=== PATIENT | female | born 1965 | race Hispanic/Latino ===

== ENCOUNTER → 2021-05-13 | Outpatient (CLI) | payer OTHER | END | disposition home or self-care (01) | LOC: RAH 10:50 | PROVIDERS: ATTEND Internal Medicine Cardiovascular Disease | DX: Z13.6 Encounter for screening for cardiovascular disorders (principal) | CPT/HCPCS: 75571 ==

== ENCOUNTER → 2024-07-16 | Outpatient (CLI) | payer OTHER ==
--- NOTE | 2024-07-16 17:38 | HMCSR ---
APPROVED REPORT Bilateral Lower Extremity Venous Study for DVT., Venous Competence. Indications Lower Extremity Edema: , i87.1, i87.2 Vein Imaging CFV (R): Normal flow, augmentation and compression. No evidence of DVT. 10.0mm 1089ms of reflux. SFJ (R): Normal flow, augmentation and compression. No evidence of DVT. FEM (R): Normal flow, augmentation and compression. No evidence of DVT. POP (R): Normal flow, augmentation and compression. No evidence of DVT. DFV (R): Normal flow, augmentation and compression. No evidence of DVT. PTV (R): Normal flow, augmentation and compression. No evidence of DVT. Peroneals (R): Normal flow, augmentation and compression. No evidence of DVT. CFV (L): Normal flow, augmentation and compression. No evidence of DVT. 8.3mm 1861ms of reflux. SFJ (L): Normal flow, augmentation and compression. No evidence of DVT. FEM (L): Normal flow, augmentation and compression. No evidence of DVT. POP (L): Normal flow, augmentation and compression. No evidence of DVT. DFV (L): Normal flow, augmentation and compression. No evidence of DVT. PTV (L): Normal flow, augmentation and compression. No evidence of DVT. Peroneals (L): Normal flow, augmentation and compression. No evidence of DVT. Technologist Impression Deep viens of the bilateral lower extremities appear patent and compressible without thrombus. Deep venous reflux noted in the RCFV and LCFV. Superficial insufficency noted in the RGSV, RSSV and LGSV. RGSV junction 4.4mm 556ms thigh 2.1mm 0.0ms knee 2.1mm 0.0ms calf 2.0mm 3561ms RSSV prox 2.3mm 583ms mid 2.1mm 0.0ms LGSV junction 5.8mm 3556ms thigh 3.5mm 2072ms knee 5.2mm 3411ms calf 4.0mm 2639ms LSSV prox 1.8mm 0.0ms mid 1.9mm 0.0ms Conclusion Deep viens of the bilateral lower extremities appear patent and compressible without thrombus. Deep venous reflux noted in the RCFV and LCFV. Superficial insufficency noted in the RGSV, RSSV and LGSV. Conclusion Deep viens of the bilateral lower extremities appear patent and compressible without thrombus. Deep venous reflux noted in the RCFV and LCFV. Superficial insufficency noted in the RGSV, RSSV and LGSV.
== END | disposition home or self-care (01) ==
LOC: SHCH 10:00
PROVIDERS: ATTEND Internal Medicine Cardiovascular Disease
DX: I87.2 Venous insufficiency (chronic) (peripheral) (principal); I87.1 Compression of vein
CPT/HCPCS: 93970